=== PATIENT | female | born 1995 | race Caucasian/White ===

== ENCOUNTER 2020-10-11 15:40 | Outpatient (RCR) | payer BC, SELFPAY ==
[2017-07-04 07:32] VITALS: BMI 28.3
== END 2020-12-12 23:59 ==
LOC: IMMUN 15:40
PROVIDERS: Referring Provider Family Medicine; Visit Provider Family Medicine
DX: Z23 Encounter for immunization (principal)
CPT/HCPCS: 0001A; 0002A; 91300